=== PATIENT | female | born 1960 | race Caucasian/White ===

== ENCOUNTER 2020-06-02 20:44 | Emergency (ER) | payer OTHER ==
[~2020-06-02] VITALS: Ht 160 cm; Wt 78.0 kg
[2020-06-02 21:22] VITALS: Ht 160 cm; Wt 78.0 kg
[2020-06-02 23:40] VITALS: BP 145/87
== END 2020-06-02 23:40 | disposition home or self-care (01) ==
LOC: ED 20:44
DX: S05.01XA Injury of conjunctiva and corneal abrasion without foreign body, right eye, initial encounter (principal); W22.8XXA Striking against or struck by other objects, initial encounter; Y93.89 Activity, other specified; Y92.89 Other specified places as the place of occurrence of the external cause; Y99.8 Other external cause status
CPT/HCPCS: 90715